=== PATIENT | female | born 1965 | race Caucasian/White ===

== ENCOUNTER → 2018-11-25 | Day surgery (SDC) | payer OTHER ==
[~2018-11-25] MED LIST: ASPI1TAB31 PO; DULO60CA6 PO; ESOM20CA PO; GLIM1TAB PO; IV RINGERS,LACTATED 1000ML 1,000 ML IV SCH; LOSA1TAB12 PO; METF10007 PO; NAPR-683 PO; ONDA4TAB11 PO; PIOG30TA41 PO; PROP20TA PO; PROPOFOL 20 ML IV ONE
[2018-11-25 11:12] VITALS: BP 129/75
--- NOTE | 2018-11-28 15:09 | PATHOLOGY ---
[facility] Accession Number: [id number] . 01 Material submitted: . DISTAL ESOPHAGUS . 01 Clinical history: . Nausea . 02 Diagnosis: Esophageal biopsies, distal esophagus: - Segments of hyperplastic squamous esophageal mucosa consistent with reflux esophagitis. . (JPM:mml; 11/28/2018) [facility]11/28/2018 . 02 Comment: Sections of the distal esophageal biopsy reveal segments of focally tangentially oriented, hyperplastic squamous esophageal mucosa. The findings are consistent with reflux esophagitis. There is no evidence of Lindsey's change, dysplasia, or malignancy. . (JPM:mml; 11/28/2018) . 02 Electronically signed: . James Encinas MD, Pathologist NPI- [id number] . 01 Gross description: . Received in formalin labeled "Rosangela Rios, distal esophagus," are 3 segments of alex soft tissue measuring 1.1 x 0.6 x 0.2 cm in aggregate dimensions and ranging from 0.4 to 0.5 cm in maximum dimension. The specimen is submitted entirely in cassette A1. (TSD; 11/25/2018) TOB/TOB . 02 Pathologist provided ICD-10: K21.0 . 02 CPT . 444123 Specimen Comment: A courtesy copy of this report has been sent to Specimen Comment: [phone], . Specimen Comment: Report sent to / DR CROCKER Performed at: 01 [facility] [address], [place] [id number] MD Kevin Adair MD Phone: [phone] Performed at: 02 [facility] [place] [id number] MD James Encinas MD Phone: [phone]
== END | disposition home or self-care (01) ==
LOC: SURG 08:36
PROVIDERS: ATTEND Internal Medicine Gastroenterology
DX: K21.0 Gastro-esophageal reflux disease with esophagitis (principal); Z88.5 Allergy status to narcotic agent; Z88.8 Allergy status to other drugs, medicaments and biological substances; E11.9 Type 2 diabetes mellitus without complications; F32.9 Major depressive disorder, single episode, unspecified; M79.7 Fibromyalgia; I10 Essential (primary) hypertension; Z82.49 Family history of ischemic heart disease and other diseases of the circulatory system; Z79.84 Long term (current) use of oral hypoglycemic drugs; Z79.899 Other long term (current) drug therapy; Z90.49 Acquired absence of other specified parts of digestive tract; Z90.710 Acquired absence of both cervix and uterus; Z98.51 Tubal ligation status; Z98.890 Other specified postprocedural states
CPT/HCPCS: 43239; 82962; 88305; J2704

== ENCOUNTER → 2018-11-30 | Outpatient (CLI) | payer OTHER ==
[2018-11-25 11:12] VITALS: BP 129/75
[~2018-11-30] MED LIST changes: -IV RINGERS,LACTATED 1000ML 1,000 ML IV SCH; -PROPOFOL 20 ML IV ONE
[2018-11-30 15:37] LABS: BASO % 1 % (0-3); EOS # 0.2 x10^3/uL (0.0-0.7); EOS % 2 % (0-3); HEMATOCRIT 38.4 % (36.0-47.0); HEMOGLOBIN 13.4 g/dL (12.0-15.5); LYMPH % 21 % (24-48); MEAN CORPUSCULAR HEMOGLOBIN 30 pg (25-35); MEAN CORPUSCULAR HGB CONC 35 g/dL (31-37); MEAN CORPUSCULAR VOLUME 86 fL (79-100); MONO # 0.6 x10^3/uL (0.0-1.1); MONO % 7 % (0-9); NEUT # 6.5 x10^3uL (1.8-7.7); NEUT % 70 % (31-73); PLATELET COUNT 338 x10^3/uL (140-400); RED BLOOD COUNT 4.45 x10^6/uL (3.50-5.40); WHITE BLOOD COUNT 9.4 x10^3/uL (4.0-11.0)
[2018-11-30 15:54] LABS: ALBUMIN/GLOBULIN RATIO 0.8 (1.0-1.7); CALCIUM 8.8 mg/dL (8.5-10.1); CREATININE 0.6 mg/dL (0.6-1.0); GFR 105.4; POTASSIUM 3.6 mmol/L (3.5-5.1); TOTAL BILIRUBIN 0.3 mg/dL (0.2-1.0); TOTAL PROTEIN 6.9 g/dL (6.4-8.2)
[2018-11-30 16:04] LABS: FREE T4 0.98 ng/dL (0.76-1.46); THYROID STIM HORMONE (TSH) 0.899 uIU/mL (0.358-3.74)
== END | disposition home or self-care (01) ==
LOC: LAB 15:07
PROVIDERS: ATTEND Psychiatry & Neurology Neurology
DX: R51 Headache (principal)
CPT/HCPCS: 36415; 80053; 84439; 84443; 85025; 85651

== ENCOUNTER → 2018-12-19 | Outpatient (CLI) | payer OTHER ==
[2018-11-25 11:12] VITALS: BP 129/75
[~2018-12-19] MED LIST changes: +GADOBUTROL 10 MMOL/10 ML VIAL IV ONE
--- NOTE | 2018-12-19 16:22 | RAD ---
EXAMINATION: Magnetic resonance imaging (MRI) of the brain and brainstem without and with contrast 12/19/2018 3:31 PM HISTORY: Headaches for 3 months. TECHNIQUE: Multiplanar multi-weighted MRI of the brain and brainstem was performed without and with intravenous contrast using the general brain protocol. Contrast information: 10 mL Gadolinium based contrast COMPARISON: None available. FINDINGS: The scalp and calvarium are normal. The superior sagittal sinus demonstrates normal venous flow. The corpus callosum is normal in shape and signal intensity. The posterior fossa is unremarkable. The pituitary and sella are normal. The brainstem and craniocervical junction are unremarkable. Diffusion weighted images reveal no hyperintensities to suggest acute cerebral infarction. The susceptibility weighted sequences reveal no evidence of acute or chronic hemorrhage. The ventricles are normal in size and position without evidence of hydrocephalus. There are no areas of abnormal contrast enhancement. The paranasal sinuses are normal. The visualized portions of the mastoids are unremarkable. The orbits appear normal. Normal flow voids are demonstrated in the carotid arteries and basilar artery. IMPRESSION: No evidence for acute or subacute ischemia. No significant intracranial abnormality is identified. Electronically signed by: Chelsea Wise MD (12/19/2018 4:17 PM) [facility]
== END | disposition home or self-care (01) ==
LOC: MRI 14:52
PROVIDERS: ATTEND Psychiatry & Neurology Neurology
DX: H55.00 Unspecified nystagmus (principal); R51 Headache
CPT/HCPCS: 70553; A9585

== ENCOUNTER → 2018-12-21 | Outpatient (CLI) | payer OTHER ==
[2018-11-25 11:12] VITALS: BP 129/75
[~2018-12-21] MED LIST changes: -GADOBUTROL 10 MMOL/10 ML VIAL IV ONE
--- NOTE | 2018-12-21 16:57 | EEG ---
DATE OF SERVICE: 12/21/2018 ELECTROENCEPHALOGRAM NUMBER: [id number]. OBJECTIVE: This is a 53-year-old female patient with history of seizure or seizure-like episodes. EEG was requested to evaluate seizure activity. METHODS: Twenty electrodes were applied according to the international 10-20 electrode placement system. EKG monitoring, hyperventilation, intermittent photic stimulation, monopolar and bipolar montages are routinely utilized. The record was obtained on a digital system with video monitoring. FINDINGS: 1. Background: The patient was recorded in the awake, drowsy, and sleep states. The overall background amplitude is 5-15 microvolts. A posterior dominant rhythm of 8 Hz is observed. 2. Abnormalities: No specific epileptiform discharge or electrographic seizure is seen. No focal or diffuse slowing. Muscle artifact noted. 3. Activation: Hyperventilation was performed with fair efforts and normal response. Intermittent photic stimulation was performed with photic driving. No specific epileptiform discharge or electrographic seizure induced by hyperventilation or intermittent photic stimulation. IMPRESSION: This electroencephalogram is within the broad normal limits of the study for the awake, drowsy, and sleep states. No focal, lateralizing, specific epileptiform discharge or electrographic seizure is seen. HANK ABRAMS MD DR: KANCHAN/holly JOB#: [id number] / [id number] NEIL
== END | disposition home or self-care (01) ==
LOC: RT 07:49
PROVIDERS: ATTEND Psychiatry & Neurology Neurology
DX: R51 Headache (principal)
CPT/HCPCS: 95816

== ENCOUNTER 2021-06-16 15:14 | Observation (INO) | payer BC ==
[2021-06-16] VITALS (8 sets, daily range): BP systolic 88–108; BP diastolic 51–59
[~2021-06-16] VITALS: Ht 157.5 cm; Wt 89.6 kg
[~2021-06-16 15:14] MED LIST changes: +ONDA-84 PO; -ONDA4TAB11 PO
[2021-06-16] MEDS ORDERED: IODIXANOL 320 MG/ML 100 ML VIAL. ONE (15:22)
[2021-06-16] MEDS ORDERED: NITROGLYCERIN 200 MCG/2 ML SYRINGE FOR CATH/VASC LAB. ONE ×2 (15:44→15:46)
[2021-06-16] MEDS ORDERED: HEPARIN for IV BOLUS 10,000 UNIT/10 ML VIAL. ONE (15:44)
[2021-06-16] MEDS ORDERED: fentaNYL PF VIAL 100 MCG/2 ML VIAL ONE (15:44)
[2021-06-16] MEDS ORDERED: VERAPAMIL 5 MG/2 ML VIAL. ONE (15:44)
[2021-06-16] MEDS ORDERED: MIDAZOLAM HCL/PF 2 MG/2 ML VIAL. ONE (15:44)
[2021-06-16] MEDS ORDERED: IODIXANOL 320 MG/ML 100 ML VIAL. IART ONE (16:00)
[2021-06-16] MEDS ORDERED: fentaNYL PF VIAL 100 MCG/2 ML VIAL IV ONE (16:00)
[2021-06-16] MEDS ORDERED: CHLOROPROCAINE 3% MPF 20 ML VIAL. IJ ONE (16:00)
[2021-06-16] MEDS ORDERED: CONTRAST GIVEN. MC PRN (16:00)
[2021-06-16] MEDS ORDERED: VERAPAMIL 5 MG/2 ML VIAL. IART ONE (16:00)
[2021-06-16] MEDS ORDERED: HEPARIN for IV BOLUS 10,000 UNIT/10 ML VIAL. IART ONE (16:00)
[2021-06-16] MEDS ORDERED: MIDAZOLAM HCL/PF 2 MG/2 ML VIAL. IV ONE (16:00)
[2021-06-16] MEDS ORDERED: NITROGLYCERIN 200 MCG/2 ML SYRINGE FOR CATH/VASC LAB. IART ONE (16:00)
[2021-06-16] MEDS ORDERED: NITROGLYCERIN 200 MCG/2 ML SYRINGE FOR CATH/VASC LAB. ICAR ONE (16:15)
[2021-06-16] MEDS ORDERED: IV NORMAL SALINE 500ML BAG 500 ML IV ONE (16:15)
--- NOTE | 2021-06-16 16:36 | CARD ---
MR#: [id number] Date of Study: 06/16/2021 Ordering Physician: JOSTIN MANN, Referring Physician: JOSTIN MANN, Tech: RT Darryl(R)() APPROVED REPORT Technologist: RT Darryl(R)() Nurse: Ryann Guerrero RN Procedure(s) performed: FLOURO TIME: 1.7 MINUTES DOSE: 53.6 Gycm2 CONTRAST: 69 CC'S VISI 320 MODERATE SEDATION: 27 MINUTES [facility] Clinical Frailty Scale [facility] Clinical Frailty Scale: Managing Well Heart Failure Heart Failure: No CASE TECHNIQUE IV conscious sedation was used throughout procedure with appropriate monitoring and was performed in the presence of a registered nurse who was an independent trained observer other than the physician p erforming the procedure. During this case, Fluoroscopy and low osmolar contrast were used for imaging . Specimen(s) Removed: N/A Estimated Blood loss: 15 cc's. PROCEDURE NARRATIVE Clinical information: 55-year-old woman presents to the hospital in the setting of unstable angina. Informed consent: Written informed consent was obtained from the patient after adequate discussion of the risks and nanci efits of the procedure. Procedure details: ACCESS: The right wrist was prepped and draped in usual sterile fashion. Under 1% lidocaine local anesthesia a 6 Marshallese Terumo sheath was placed in the right radial artery via the Seldinger technique. DIAGNOSTIC ANGIOGRAPHY: Right and left coronary arteries were engaged with a 6 Marshallese TIG catheter. Diagnostic angiography i n multiple views were obtained. Next, a 6 Marshallese pigtail catheter was placed in the left ventricle a nd a LVEDP was measured. A pullback was performed after left ventriculography. All catheters were e xchanged over J-tip guidewire. FINDINGS: ======= Aorta: 110/80 LVEDP: 15 mmHg Left ventriculogram: Ejection fraction 30%. Hyperdynamic basal segments with akinesis of the distal two thirds of the LV consistent with stress-i nduced cardiomyopathy. Coronary angiography: LM: Large caliber vessel with normal angiographic appearance LAD: Moderate caliber vessel with a mid 40% stenosis. D1 is a small caliber vessel with a mid 40 to 50% stenosis D2 is a small caliber vessel with severe diffuse up to 70% stenosis. Left circumflex is a moderate caliber nondominant vessel. OM1 is a moderate caliber vessel with a proximal 50% stenosis RCA is a large caliber dominant vessel with a mid 30% stenosis RPDA is a small caliber vessel with a proximal 30% stenosis. CLOSURE: At case completion the right radial sheath was removed and a Terumo radial band was applied with 11 m L of air. Hemostasis was achieved. COMPLICATIONS: No acute complications noted Conclusion 1. Normal left-sided filling pressures 2. Severe LV systolic dysfunction, EF 30% and wall motion overall consistent with stress-induced car diomyopathy 3. Three-vessel coronary artery disease without any lesions needing intervention. Recommendations 1. Suspect that the patient's cardiomyopathy is most likely related to stress-induced cardiomyopathy . Although she has coronary artery disease there is no critical large vessel coronary disease to hel p explain the degree of her LV dysfunction. Recommend medical therapy and reassessment of LV functio n in 3 months. Signed by : Jostin Mann, Electronically Approved : 06/16/2021 16:36:26
--- NOTE | 2021-06-16 16:38 | PDOC ---
MODERATE SEDATION ASSESSMENT RISKS/ALTERNATIVES Risks/Alternatives Risks and alternatives of this type of sedation and procedure discussed with: RISK/ALTERNATIVES: Patient H & P ON CHART H & P H & P on chart and reviewed for co-morbid conditions and appropriate labs. H&P ON CHART: Yes STATUS PREG STATUS ASSESSED: N/A MEDS/ALLERGIES REVIEWED Meds/Allergies Reviewed Medications and Allergies including time and route of recently administered narcotics and sedatives. MEDS/ALLERGIES REVIEWED: Yes ASA RATING ASA RATING: II AIRWAY ASSESSMENT Airway Assessment Airway patency, oral function limitations, presence of caps, crowns, dentures, partials, and ability to extend neck assessed. AIRWAY ASSESSMENT: Yes MALLAMPATI SCORE MALLAMPATI SCORE: II PRE-SEDATION ASSESSMENT PRE-SEDATION ASSESSMENT: Yes JOSTIN MCNAMARA MD Jun 16, 2021 16:38
--- NOTE | 2021-06-16 18:39 | PDOC1 ---
History and Physical Date of Admission Date of Admission DATE: 06/16/21 TIME: 18:34 Identification/Chief Complaint Chief Complaint chest pain, left to shoulder and neck Source Source: Chart review, Patient History of Present Illness History of Present Illness Rosangela is a 55 year old female who was admitted to [facility] yesterday with acute new chestpain, left sided sharp pain to left shoulder that readiated to neck and caused a headache. She does have history of migrane but this was unlike that. . Her initial troponin was 0.154 with an elevated BNP of 4426. troponin trended down from there. A CTA of the chest showed no PE. she was transferred here for further CV eval and consider cath. rashida lives with her mother, and is studying for her associates degree in [employer] usage. Past Medical History Cardiovascular: HTN Pulmonary: No pertinent hx GI: No pertinent hx Psych: Anxiety, Depression Endocrine: No pertinent hx Dermatology: No pertinent hx Past Surgical History Past Surgical History: No pertinent history Social History Smoke: No ALCOHOL: none Drugs: None Current Medications Current Medications Current Medications Iodixanol (Visipaque 320) 100 ml STK-MED ONCE .ROUTE ; Start 06/16/21 at 15:22; Stop 06/16/21 at 15:22; Status DC Heparin Sodium/ Sodium Chloride 1,000 ml @ As Directed STK-MED ONCE .ROUTE ; Start 06/16/21 at 15:22; Stop 06/16/21 at 15:22; Status DC Midazolam HCl (Versed) 2 mg STK-MED ONCE .ROUTE ; Start 06/16/21 at 15:44; Stop 06/16/21 at 15:44; Status DC Fentanyl Citrate (Fentanyl 2ml Vial) 100 mcg STK-MED ONCE .ROUTE ; Start 06/16/21 at 15:44; Stop 06/16/21 at 15:44; Status DC Verapamil HCl (Verapamil) 5 mg STK-MED ONCE .ROUTE ; Start 06/16/21 at 15:44; Stop 06/16/21 at 15:44; Status DC Heparin Sodium (Porcine) (Heparin Sodium) 10,000 unit STK-MED ONCE .ROUTE ; Start 06/16/21 at 15:44; Stop 06/16/21 at 15:44; Status DC Nitroglycerin (Nitroglycerin) 200 mcg STK-MED ONCE .ROUTE ; Start 06/16/21 at 15:44; Stop 06/16/21 at 15:44; Status DC Nitroglycerin (Nitroglycerin) 200 mcg STK-MED ONCE .ROUTE ; Start 06/16/21 at 15:46; Stop 06/16/21 at 15:46; Status DC Nitroglycerin (Nitroglycerin) 200 mcg 1X ONCE IART Last administered on 06/16/21at 16:14; Start 06/16/21 at 16:00; Stop 06/16/21 at 16:01; Status DC Verapamil HCl (Verapamil) 2.5 mg 1X ONCE IART Last administered on 06/16/21at 16:15; Start 06/16/21 at 16:00; Stop 06/16/21 at 16:01; Status DC Heparin Sodium (Porcine) (Heparin Sodium) 2,500 unit 1X ONCE IART Last administered on 06/16/21at 16:17; Start 06/16/21 at 16:00; Stop 06/16/21 at 16:01; Status DC Heparin Sodium/ Sodium Chloride (HEPARIN for ARTERIAL LINE FLUSH) 1,000 unit 1X ONCE IART Last administered on 06/16/21at 16:13; Start 06/16/21 at 16:00; Stop 06/16/21 at 16:01; Status DC Midazolam HCl (Versed) 2 mg 1X ONCE IV Last administered on 06/16/21at 16:15; Start 06/16/21 at 16:00; Stop 06/16/21 at 16:01; Status DC Fentanyl Citrate (Fentanyl 2ml Vial) 100 mcg 1X ONCE IV Last administered on 06/16/21at 16:16; Start 06/16/21 at 16:00; Stop 06/16/21 at 16:01; Status DC Iodixanol (Visipaque 320) 100 ml 1X ONCE IART Last administered on 06/16/21at 16:13; Start 06/16/21 at 16:00; Stop 06/16/21 at 16:01; Status DC Chloroprocaine HCl (Nesacaine 3% Mpf) 20 ml 1X ONCE IJ Last administered on 06/16/21at 16:14; Start 06/16/21 at 16:00; Stop 06/16/21 at 16:01; Status DC Info (CONTRAST GIVEN -- Rx MONITORING) 1 each PRN DAILY PRN MC SEE COMMENTS; Start 06/16/21 at 16:00; Stop 06/18/21 at 15:59 Nitroglycerin (Nitroglycerin) 200 mcg 1X ONCE ICAR Last administered on 06/16/21at 16:14; Start 06/16/21 at 16:15; Stop 06/16/21 at 16:16; Status DC Sodium Chloride 500 ml @ 500 mls/hr 1X ONCE IV Last administered on 06/16/21at 16:01; Start 06/16/21 at 16:15; Stop 06/16/21 at 17:14; Status DC Active Scripts Active Reported Ondansetron Hcl 4 Mg Tablet 1 Tab PO PRN Q6HRS Nexium Capsule (Esomeprazole Magnesium) 20 Mg Capsule.dr 1 Cap PO DAILY Excedrin Migraine Caplet (Aspirin/Acetaminophen/Caffeine) 1 Each Tablet 1 Each PO Q6HRS Naprosyn (Naproxen) 500 Mg Tablet 220 Mg PO BID Propranolol Hcl 20 Mg Tablet 20 Mg PO DAILY Hyzaar 100-25 Tablet (Losartan/Hydrochlorothiazide) 1 Each Tablet 1 Tab PO DAILY Cymbalta (Duloxetine Hcl) 60 Mg Capsule.dr 120 Mg PO DAILY Amaryl (Glimepiride) 1 Mg Tablet 2 Mg PO DAILY Actos (Pioglitazone Hcl) 30 Mg Tablet 1 Tab PO DAILY Metformin Hcl 1,000 Mg Tablet 1,000 Mg PO DAILYWBKFT Allergies Allergies: Coded Allergies: codeine (Verified Allergy, Intermediate, 11/25/18) morphine (Verified Allergy, Intermediate, 11/25/18) xylitol (Verified Allergy, Intermediate, (XYLAREX), 11/25/18) ROS General: No: Chills, Night Sweats, Fatigue, Malaise, Appetite, Other PSYCHOLOGICAL ROS: No: Anxiety, Behavioral Disorder, Concentration difficultie, Decreased libido, Depression, Disorientation, Hallucinations, Hostility, Irritablity, Memory difficulties, Mood Swings, Obsessive thoughts, Physical abuse, Sexual abuse, Sleep disturbances, Suicidal ideation, Other Eyes: No Blurry vision, No Decreased vision, No Double vision, No Dry eyes, No Excessive tearing, No Eye Pain, No Itchy Eyes, No Loss of vision, No Photophobia, No Scotomata, No Uses contacts, No Uses glasses, No Other HEENT: No: Heacaches, Visual Changes, Hearing change, Nasal congestion, Nasal discharge, Oral lesions, Sinus pain, Sore Throat, Epistaxis, Sneezing, Snoring, Tinnitus, Vertigo, Vocal changes, Other Respiratory: No: Cough, Hemoptysis, Orthopnea, Pleuritic Pain, Shortness of breath, SOB with excertion, Sputum Changes, Stridor, Tachypnea, Wheezing, Other Cardiovascular: yes Chest Pain; No Palpitations, No Orthopnea, No Paroxysmal Noc. Dyspnea, No Edema, No Lt Headedness, No Other Gastrointestinal: No Nausea, No Vomiting, No Abdominal Pain, No Diarrhea, No Constipation, No Melena, No Hematochezia, No Other Musculoskeletal: Yes Joint Stiffness; No Gait Disturbance, No Joint Pain, No Joint Swelling, No Muscle Pain, No Muscular Weakness, No Pain In:, No Swelling In:, No Other Neurological: No Behavorial Changes, No Bowel/Bladder ControlChng, No Confusion, No Dizziness, No Gait Disturbance, No Headaches, No Impaired Coord/balance, No Memory Loss, No Numbness/Tingling, No Seizures, No Speech Problems, No Tremors, No Visual Changes, No Weakness, No Other Skin: Yes Dry Skin; No Eczema, No Hair Changes, No Lumps, No Mole Changes, No Mottling, No Nail Changes, No Pruritus, No Rash, No Skin Lesion Changes, No Other, No Acne Physical Exam General: Alert, Oriented X3 HEENT: Atraumatic, PERRLA Lungs: Clear to auscultation Heart: S1S2, no gallops, no murmurs Rectal Exam: not examined Extremities: No clubbing, No cyanosis, No edema, Normal pulses Skin: No breakdown, No significant lesion Neuro: Normal gait, Normal speech, Normal tone, Sensation intact, Cranial nerves 3-12 NL Psych/Mental Status: Mental status NL, Mood NL Vitals Vitals Vital Signs Date Time Temp Pulse Resp B/P (MAP) Pulse Ox O2 Delivery O2 Flow Rate FiO2 06/16/21 18:30 97.6 69 16 105/59 (74) 95 Room Air 97.6 06/16/21 16:25 2.0 VTE Prophylaxis Ordered VTE Prophylaxis Devices: No VTE Pharmacological Prophylaxi: Yes Assessment/Plan Assessment/Plan stress induced, or cardiomyopathy, NSTEMI, poss light, demand, obese, BMI 36 Dm2 depression,anxiety tremor, essential, Justifications for Admission Other Justification SONIA PHELPS MD Jun 16, 2021 18:39
[2021-06-16] MEDS ORDERED: ASA/APAP/CAFFEINE 250/250/65MG TABLET. PO PRN (19:00)
[2021-06-16] MEDS: hydroCHLOROthiazide 25 MG TABLET PO SCH (19:00)
[2021-06-16] MEDS ORDERED: LOSARTAN POTASSIUM 50 MG TABLET. PO SCH (19:00)
--- NOTE | 2021-06-16 19:10 | NUR ---
Pt in bed assessment completed vss poc explained pt denied pain will resume care and continue to monitor pt.
[2021-06-16] MEDS ORDERED: ENOXAPARIN 40 MG/0.4 ML SYRINGE. SQ SCH (21:00)
[2021-06-17 03:03] VITALS: BP 110/67
[2021-06-17 07:00] VITALS: BP 113/54
[2021-06-17] MEDS ORDERED: PANTOPRAZOLE 40 MG TABLET.DR. PO SCH (07:30)
[2021-06-17 08:13] LABS: CREATININE 0.6 mg/dL (0.6-1.0); GFR 104.6
[2021-06-17] MEDS ORDERED: LOSARTAN POTASSIUM 25 MG TABLET. PO SCH (09:00)
[2021-06-17] MEDS ORDERED: GLIMEPIRIDE 2 MG TABLET. PO SCH (09:00)
[2021-06-17] MEDS ORDERED: PIOGLITAZONE 15 MG TABLET. PO SCH (09:00)
[2021-06-17] MEDS ORDERED: DULoxetine HCL 30 MG CAPSULE.DR PO SCH (09:00)
[2021-06-17] MEDS ORDERED: PROPRANOLOL 10 MG TABLET. PO SCH (09:00)
[2021-06-17] MEDS: hydroCHLOROthiazide 25 MG TABLET PO SCH (09:00)
--- NOTE | 2021-06-17 10:31 | PDOC ---
CARDIO Progress Notes Date and Time Date of Service 06/17/21 Time of Evaluation 1145 Subjective Subjective: No Chest Pain, No shortness of breath, No Palpitations Vitals Vitals Vital Signs Date Time Temp Pulse Resp B/P (MAP) Pulse Ox O2 Delivery O2 Flow Rate FiO2 06/17/21 09:03 53 113/54 06/17/21 07:00 97.9 15 97 Room Air 97.9 06/16/21 16:25 2.0 Weight Weight [ ] Input and Output Intake and Output Intake and Output 06/17/21 07:00 Intake Total 870 ml Output Total 2 ml Balance 868 ml Intake Oral 870 ml Output Urine Total 2 ml # Bowel Movements 1 Laboratory Labs Laboratory Tests Test 06/17/21 07:35 Sodium Level 138 mmol/L (136-145) Potassium Level 4.0 mmol/L (3.5-5.1) Chloride Level 103 mmol/L (98-107) Carbon Dioxide Level 26 mmol/L (21-32) Anion Gap 9 (6-14) Blood Urea Nitrogen 15 mg/dL (7-20) Creatinine 0.6 mg/dL (0.6-1.0) Estimated GFR (Cockcroft-Gault) 104.6 Glucose Level 168 mg/dL (70-99) Calcium Level 9.0 mg/dL (8.5-10.1) Physical Exam HEENT: Neck Supple W Full Motion Chest: Symmetric LUNGS: Clear to Auscultation Heart: S1S2, RRR Abdomen: Soft N/T Extremities: No Edema Neurology: alert, oriented, follow commands Assessment Assessment 1. Chest pain 2. Mild troponin elevation; peak 0.1 3. CAD; 3-vessel, non-obstructive disease 4. Chronic systolic CHF; clinically compensated 5. NICM; LVEF 30%. consistent with stress-induced CMP 6. Hypertension; low-end 7. Dyslipidemia 8. Anxiety Recommendations Secondary prevention ASA, statin Resume low-dose Coreg Discontinue valsartan, HCTZ Add low-dose lisinopril and spironolactone Will repeat echo in 3 months on an outpatient basis Follow up in our office with Dr. Johnathan Gutierrezfation of Admission Dx: Justifications for Admission: Justification of Admission Dx: Yes Comments: Cardiomyopathy Chest pain systolic CHF KRISTIN HARMON APRN Jun 17, 2021 10:31
[2021-06-17 11:00] VITALS: BP 125/56
--- NOTE | 2021-06-17 11:17 | NUR ---
Correcting home med reconciliation. Non administered B/P med due to low pressure. spoke with cards, ok to hold
[2021-06-17] MEDS ORDERED: DICY10CA3 PO (11:35)
[2021-06-17] MEDS ORDERED: MELA5TAB20 PO (11:35)
[2021-06-17] MEDS ORDERED: BUSP5TAB PO (11:35)
[2021-06-17] MEDS ORDERED: DULA0.75 SQ (11:35)
[2021-06-17] MEDS ORDERED: CARV3.123 PO (11:35)
[2021-06-17] MEDS ORDERED: VALS1TAB14 PO (11:35)
[2021-06-17] MEDS ORDERED: BIOT10TA PO (11:35)
[2021-06-17] MEDS ORDERED: DAPA5TAB PO (11:35)
[2021-06-17] MEDS ORDERED: DOCU-109 PO (11:35)
[2021-06-17] MEDS ORDERED: LOSA25TA54 PO (12:34)
--- NOTE | 2021-06-17 12:35 | DISCH ---
DISCHARGE INSTRUCTIONS Condition on Discharge Condition on Discharge: Stable Activity After Discharge Activity Instructions for Disc: Activity as tolerated, Avoid exertion Lifting Instructions after Dis: Do not lift >10 pounds Exercise Instruction after Dis: Walk 15 min, 3 x per day Driving Instructions after Dis: Do not drive today Weight Bearing Status after Di: Full weight bearing Diet after Discharge Diet after Discharge: Cardiac Contacting the DRAnthony after DC Call your doctor for: If your condition worsens Follow-Up Follow up with: PCP within 2 weeks of discharge Follow Up With: Cardiology as scheduled LEA LEONARD MD Jun 17, 2021 12:35
[2021-06-17] MEDS ORDERED: LISI-517 PO (13:50)
[2021-06-17] MEDS ORDERED: SPIR25TA PO (13:50)
[2021-06-17] MEDS ORDERED: CARV3.12 PO (13:51)
[2021-06-17] MEDS ORDERED: ASPI-886 PO (13:59)
[2021-06-17] MEDS ORDERED: ATOR40TA PO (13:59)
--- NOTE | 2021-06-17 14:05 | NUR ---
SS following for discharge planning. SS reviewed pt chart and discussed with pt RN. Pt is currently on room air. Pt had heart cath yesterday. Discharge order on the chart for home with self care.
--- NOTE | 2021-06-17 14:56 | NUR ---
Discharge Note: JOVAN DIAZ [address] Discharge instructions and discharge home medications reviewed with Patient and a copy given. All questions have been answered and understanding verbalized. The following instructions and handouts were given: discharge instructions, heart failure booklet, new medication list and prescriptions, follow up appointment Discontinued lines and drains: Peripheral IV intact. Patient discharged to Home or Self Care with Parent via Ambulated
[2021-06-17] MEDS ORDERED: CARVEDILOL 3.125 MG TABLET. PO SCH (17:00)
[2021-06-17] MEDS ORDERED: ATORVASTATIN CALCIUM 40 MG TABLET. PO SCH (21:00)
[2021-06-18] MEDS ORDERED: ASPIRIN ENTERIC COATED 81 MG TABLET.DR. PO SCH (08:00)
[2021-06-18] MEDS ORDERED: SPIRONOLACTONE 25 MG TABLET PO SCH (09:00)
[2021-06-18] MEDS ORDERED: LISINOPRIL 5 MG TABLET. PO SCH (09:00)
--- NOTE | 2021-06-19 17:10 | PDOC3 ---
[facility]-Discharge Summary Date of Admission: Date of Admission: Jun 16, 2021 Date of Discharge: Date of Discharge: Jun 17, 2021 Discharge Diagnosis: Discharge Diagnosis: stress induced, or cardiomyopathy, NSTEMI, poss light, demand, obese, BMI 36 Dm2 depression,anxiety tremor, essential, Consults: Consults: cardiology Recommendations Secondary prevention ASA, statin Resume low-dose Coreg Discontinue valsartan, HCTZ Add low-dose lisinopril and spironolactone Will repeat echo in 3 months on an outpatient basis Follow up in our office with Dr. Mann Hospital Course: Hospital Course: 55 year old female who was admitted to [facility] yesterday with acute new chestpain, left sided sharp pain to left shoulder that readiated to neck and caused a headache. She does have history of migrane but this was unlike that. . Her initial troponin was 0.154 with an elevated BNP of 4426. troponin trended down from there. A CTA of the chest showed no PE. she was transferred here for further CV eval and consider cath. rashida lives with her mother, and is studying for her associates degree in [employer]. [facility] on 06/16/21: Conclusion 1. Normal left-sided filling pressures 2. Severe LV systolic dysfunction, EF 30% and wall motion overall consistent with stress-induced cardiomyopathy 3. Three-vessel coronary artery disease without any lesions needing intervention. Recommendations 1. Suspect that the patient's cardiomyopathy is most likely related to stress- induced cardiomyopathy. Although she has coronary artery disease there is no critical large vessel coronary disease to help explain the degree of her LV dysfunction. Recommend medical therapy and reassessment of LV function in 3 mo nths. By day of discharge, pt was clinically stable, chest pain free and ready for discharge. Rest of hospital course was uneventful Disposition: Disposition/Orders: D/C to Home Activity: Activity: Resume previous activity Diet: Diet: Cardiac Medications: Home Meds Active Scripts Atorvastatin Calcium (LIPITOR) 40 Mg Tablet, 1 TAB PO QHS for CAD for 30 Days, #30 TAB 1 Refill Prov:KRISTIN HARMON APRN 06/17/21 Aspirin (ASPIRIN EC) 81 Mg Tablet., 1 TAB PO DAILY for CAD for 30 Days, #30 TAB 3 Refills Prov:KRISTIN HARMON APRN 06/17/21 Carvedilol (COREG ) 3.125 Mg Tablet, 3.125 MG PO BIDWMEALS for CARDIAC for 30 Days, #60 TAB Prov:LEA LEONARD MD 06/17/21 Spironolactone (ALDACTONE) 25 Mg Tablet, 25 MG PO DAILY for cardiomyopathy for 30 Days, #30 TAB Prov:LEA LEONARD MD 06/17/21 Lisinopril (LISINOPRIL) 5 Mg Tablet, 5 MG PO QHS for FOR HYPERTENSION for 30 Days, #30 TAB 0 Refills Prov:LEA LEONARD MD 06/17/21 Reported Medications Docusate Sodium (COLACE) 100 Mg Capsule, 1 CAP PO BID PRN for CONSTIPATION for 30 Days, #60 CAP 0 Refills 06/17/21 Melatonin (MELATONIN) 5 Mg Tab.rapdis, 1 TAB PO QHS for sleep for 30 Days, #30 TAB 0 Refills 06/17/21 Dicyclomine Hcl (DICYCLOMINE HCL) 10 Mg Capsule, 1 CAP PO PRN Q6HRS for loose stoole, #100 CAP 3 Refills 06/17/21 Biotin (BIOTIN) 10 Mg Tablet, 1 TAB PO BID for replacement for 30 Days, #60 TAB 0 Refills 06/17/21 Buspirone Hcl (BUSPIRONE HCL) 5 Mg Tablet, 2 TAB PO BID for diuretic, #60 TAB 2 Refills 06/17/21 Dapagliflozin Propanediol (FARXIGA) 5 Mg Tablet, 5 MG PO DAILY for diabetic, TAB 06/17/21 Dulaglutide (Trulicity) 0.75 Mg/0.5 Ml Pen.injctr, 0.75 MG SQ WEEKLY for sugars, EACH 06/17/21 Duloxetine Hcl (CYMBALTA) 60 Mg Capsule.dr, 60 MG PO DAILY for depression, CAP 11/25/18 Metformin Hcl (METFORMIN HCL) 1,000 Mg Tablet, 1000 MG PO DAILYWBKFT for ANTI- DIABETIC, TAB 0 Refills 11/25/18 Discontinued Reported Medications Valsartan/Hydrochlorothiazide (DIOVAN HCT 160-25 MG TABLET) 1 Each Tablet, 1 TAB PO DAILY for cardiac, #30 TAB 5 Refills 06/17/21 Ondansetron Hcl (ONDANSETRON HCL) 4 Mg Tablet, 1 TAB PO PRN Q6HRS for nausea, #10 TAB 1 Refill 11/25/18 Esomeprazole Magnesium (NEXIUM CAPSULE) 20 Mg Capsule.dr, 1 CAP PO DAILY for reflux, #30 CAP 2 Refills 11/25/18 Aspirin/Acetaminophen/Caffeine (EXCEDRIN MIGRAINE CAPLET) 1 Each Tablet, 1 EACH PO Q6HRS for migraines, TAB 11/25/18 Naproxen (NAPROSYN) 500 Mg Tablet, 220 MG PO BID for pain, TAB 11/25/18 Propranolol Hcl (PROPRANOLOL HCL) 20 Mg Tablet, 20 MG PO DAILY for tremors, TAB 11/25/18 Losartan/Hydrochlorothiazide (HYZAAR 100-25 TABLET) 1 Each Tablet, 1 TAB PO DAILY for bp, #30 TAB 5 Refills 11/25/18 Glimepiride (AMARYL) 1 Mg Tablet, 2 MG PO DAILY for diabetes, TAB 11/25/18 Pioglitazone Hcl (ACTOS) 30 Mg Tablet, 1 TAB PO DAILY for diabetes, #30 TAB 5 Refills 11/25/18 Scheduled Aspirin (Aspirin Ec), 1 TAB PO DAILY Atorvastatin Calcium (Lipitor), 1 TAB PO QHS Biotin (Biotin), 1 TAB PO BID, (Reported) Buspirone Hcl (Buspirone Hcl), 2 TAB PO BID, (Reported) Carvedilol (Coreg ), 3.125 MG PO BIDWMEALS Dapagliflozin Propanediol (Farxiga), 5 MG PO DAILY, (Reported) Dicyclomine Hcl (Dicyclomine Hcl), 1 CAP PO PRN Q6HRS, (Reported) Dulaglutide (Trulicity), 0.75 MG SQ WEEKLY, (Reported) Duloxetine Hcl (Cymbalta), 60 MG PO DAILY, (Reported) Lisinopril (Lisinopril), 5 MG PO QHS Melatonin (Melatonin), 1 TAB PO QHS, (Reported) Metformin Hcl (Metformin Hcl), 1,000 MG PO DAILYWBKFT, (Reported) Spironolactone (Aldactone), 25 MG PO DAILY Scheduled PRN Docusate Sodium (Colace), 1 CAP PO BID PRN for CONSTIPATION, (Reported) Discontinued Medications Aspirin/Acetaminophen/Caffeine (Excedrin Migraine Caplet), 1 EACH PO Q6HRS, (Reported) Esomeprazole Magnesium (Nexium Capsule), 1 CAP PO DAILY, (Reported) Glimepiride (Amaryl), 2 MG PO DAILY, (Reported) Losartan/Hydrochlorothiazide (Hyzaar 100-25 Tablet), 1 TAB PO DAILY, (Reported) Naproxen (Naprosyn), 220 MG PO BID, (Reported) Ondansetron Hcl (Ondansetron Hcl), 1 TAB PO PRN Q6HRS, (Reported) Pioglitazone Hcl (Actos), 1 TAB PO DAILY, (Reported) Propranolol Hcl (Propranolol Hcl), 20 MG PO DAILY, (Reported) Valsartan/Hydrochlorothiazide (Diovan Hct 160-25 Mg Tablet), 1 TAB PO DAILY, (Reported) Total Time: Total Time: Total time spent was 37 minutes in preparing scripts, discharge planning with SW and RN, and preparing this discharge summary. Patient seen and examined on day of discharge. Justicifation of Admission Dx: Justifications for Admission: Justification of Admission Dx: Yes LEA LEONARD MD Jun 19, 2021 17:10
== END 2021-06-17 15:10 | disposition home or self-care (01) ==
LOC: 2 SOUTH 15:14 → INTOOBSV 15:14
PROVIDERS: ADMIT Internal Medicine; ATTEND Internal Medicine
DX: I11.0 Hypertensive heart disease with heart failure (principal); I50.22 Chronic systolic (congestive) heart failure; I51.81 Takotsubo syndrome; I25.10 Atherosclerotic heart disease of native coronary artery without angina pectoris; F41.9 Anxiety disorder, unspecified; F32.9 Major depressive disorder, single episode, unspecified; I21.4 Non-ST elevation (NSTEMI) myocardial infarction; E11.9 Type 2 diabetes mellitus without complications; E66.9 Obesity, unspecified; E78.5 Hyperlipidemia, unspecified; G25.0 Essential tremor; Z68.36 Body mass index [BMI] 36.0-36.9, adult
CPT/HCPCS: 36415; 80048; 93458; 96372; 96374; 96375; 99152; 99153; C1769; C1894; G0378; G0379; J1644; J1650; J2250; J2400; J3010; J3490; J7040; Q9967

== ENCOUNTER → 2022-03-25 | Day surgery (SDC) | payer BC, MEDICAID ==
[~2022-03-25] VITALS: Ht 157.5 cm; Wt 82.2 kg
[~2022-03-25] MED LIST changes: +ASPI-886 PO; +ATOR40TA PO; +BIOT10TA PO; +BUSP5TAB PO; +CARV3.12 PO; +CARV3.123 PO; +DAPA5TAB PO; +DICY10CA3 PO; +DOCU-109 PO; +DULA0.75 SQ; -DULO60CA6 PO; +DULO60CA7 PO; +IV RINGERS,LACTATED 1000ML 1,000 ML IV SCH; +LISI5TAB15 PO; +LOSA25TA54 PO; +MELA5TAB20 PO; +PROPOFOL 10 MG/ML (20ML) VIAL. IV ONE; +SPIR25TA PO; +VALS1TAB14 PO
[2022-03-25 08:08] VITALS: BP 122/57
--- NOTE | 2022-03-25 09:04 | PDOC2 ---
CONSULT Date of Consult Date of Consult DATE: 03/25/22 TIME: 09:00 Reason for Consult Reason for Consult: Constipation/Family history of colon cancer History of Present Illness Reason for Visit: 56 year old Female is seen with above. She has noticed increased constipation. No bleeding is present. Miralax helps with the constipation when taken. Last colonoscopy was over six years ago without pathology.She otherwise is without additional complaints. Past Medical History Cardiovascular: HTN Pulmonary: No pertinent hx GI: No pertinent hx Psych: Anxiety, Depression Endocrine: No pertinent hx, Diabetes Past Surgical History Past Surgical History: Cholecystectomy, , Tubal Ligation, Hysterectomy, No pertinent history Family History Family History: Cancer (colon grandfather) Social History No ALCOHOL: none Drugs: None Current Medications Current Medications Current Medications Ringer's Solution 1,000 ml @ 75 mls/hr [id number] IV Last administered on 03/25/22at 08:13; Start 03/25/22 at 08:15; Stop 03/26/22 at 08:14 Active Scripts Active Lipitor (Atorvastatin Calcium) 40 Mg Tablet 1 Tab PO QHS 30 Days Aspirin Ec (Aspirin) 81 Mg Tablet.dr 1 Tab PO DAILY 30 Days Coreg (Carvedilol) 3.125 Mg Tablet 3.125 Mg PO BIDWMEALS 30 Days Aldactone (Spironolactone) 25 Mg Tablet 25 Mg PO DAILY 30 Days Lisinopril 5 Mg Tablet 5 Mg PO QHS 30 Days Reported Colace (Docusate Sodium) 100 Mg Capsule 1 Cap PO BID PRN 30 Days Melatonin 5 Mg Tab.rapdis 1 Tab PO QHS 30 Days Dicyclomine Hcl 10 Mg Capsule 1 Cap PO PRN Q6HRS Biotin 10 Mg Tablet 1 Tab PO BID 30 Days Buspirone Hcl 5 Mg Tablet 2 Tab PO BID Farxiga (Dapagliflozin Propanediol) 5 Mg Tablet 5 Mg PO DAILY Trulicity (Dulaglutide) 0.75 Mg/0.5 Ml Pen.injctr 0.75 Mg SQ WEEKLY Cymbalta (Duloxetine Hcl) 60 Mg Capsule.dr 60 Mg PO DAILY Metformin Hcl 1,000 Mg Tablet 1,000 Mg PO DAILYWBKFT Allergies Allergies: Coded Allergies: codeine (Verified Allergy, Intermediate, 03/25/22) lidocaine (Verified Allergy, Intermediate, 03/25/22) morphine (Verified Allergy, Intermediate, 03/25/22) ROS PSYCHOLOGICAL ROS: YES: Anxiety Physical Exam General: Alert, Oriented X3 Lungs: Clear to auscultation Heart: Normal S1, Normal S2 Abdomen: Normal bowel sounds, Soft, No tenderness Vitals VITALS Vital Signs Date Time Temp Pulse Resp B/P (MAP) Pulse Ox O2 Delivery O2 Flow Rate FiO2 03/25/22 08:08 97.3 76 20 98 97.3 Assessment/Plan Assessment/Plan Fhx colon cancer- with constipatoin, interval colonoscopy is recommended at this time. R/B have been discussed with patient who is willing to proceed. FRIEDA NAGEL MD March 25, 2022 09:04
[2022-03-25 09:39] VITALS: BP 112/62
== END | disposition home or self-care (01) ==
LOC: ENDOS 07:37
PROVIDERS: ATTEND Internal Medicine Gastroenterology
DX: K59.00 Constipation, unspecified (principal); K64.0 First degree hemorrhoids; K63.5 Polyp of colon; K63.89 Other specified diseases of intestine; I10 Essential (primary) hypertension; F41.9 Anxiety disorder, unspecified; F32.9 Major depressive disorder, single episode, unspecified; E11.9 Type 2 diabetes mellitus without complications; I25.10 Atherosclerotic heart disease of native coronary artery without angina pectoris; K21.9 Gastro-esophageal reflux disease without esophagitis; Z90.49 Acquired absence of other specified parts of digestive tract; Z90.710 Acquired absence of both cervix and uterus; Z98.51 Tubal ligation status; Z98.890 Other specified postprocedural states; Z79.82 Long term (current) use of aspirin; Z79.84 Long term (current) use of oral hypoglycemic drugs; Z79.899 Other long term (current) drug therapy; Z88.5 Allergy status to narcotic agent; Z88.6 Allergy status to analgesic agent; Z88.8 Allergy status to other drugs, medicaments and biological substances; Z80.0 Family history of malignant neoplasm of digestive organs
CPT/HCPCS: 45385; 88305; J2704